=== PATIENT | male | born 1960 | race Caucasian/White ===

== ENCOUNTER → 2018-06-09 | Outpatient (CLI) | payer OTHER ==
--- NOTE | 2018-06-09 07:36 | US ---
EXAMINATION TYPE: US liver DATE OF EXAM: 06/09/2018 COMPARISON: NONE CLINICAL HISTORY: R74.8 elevated liver enzymes. EXAM MEASUREMENTS: Liver Length: 17.8 cm Gallbladder Wall: 0.2 cm CBD: 0.2 cm Right Kidney: 12.0 x 5.5 x 5.5 cm Pancreas: wnl Liver: Increased attenuation, upper limits of normal in size Gallbladder: wnl Evidence for sonographic Sal's sign: no CBD: wnl Right Kidney: wnl IMPRESSION: 1. Mild fatty hepatic infiltration and borderline hepatomegaly.
== END | disposition home or self-care (01) ==
LOC: RADUSWWP 06:53
PROVIDERS: ATTEND Family Medicine
DX: K76.0 Fatty (change of) liver, not elsewhere classified (principal)
CPT/HCPCS: 76705